=== PATIENT | male | born 1965 | race Caucasian/White ===

== ENCOUNTER 2018-08-12 10:31 | Day surgery (SDC) | payer OTHER ==
--- NOTE | 2018-08-12 07:39 | HP ---
AMENDED REPORT: DATE OF SURGERY: 08/12/2018 HISTORY OF PRESENT ILLNESS: Left lower midline pain and diverticulitis. A couple months ago also episode a year or so ago. Last colonoscopy 20 years ago. No change in stools. No recent colonoscopy. Need for screening. PAST MEDICAL HISTORY: He denies any chronic illnesses. Environmental seasonal allergies. PAST SURGICAL HISTORY: Sinus surgery. Knee surgery. Shoulder surgery. MEDICATIONS: None. ALLERGIES: LEVOFLOXACIN. FAMILY HISTORY: No cancer. His mother had some colon problems unknown exact type but no cancer. SOCIAL HISTORY: No smoking. He denies alcohol abuse. REVIEW OF SYSTEMS: Twelve systems reviewed. No chest pain or palpitations other systems negative or noncontributory as above and per preadmission questionnaire. On 05/21/2018, CT scan showed some mild sigmoid diverticulitis at [facility]. PHYSICAL EXAMINATION: GENERAL: No acute distress. HEENT: Sclerae nonicteric. NECK: No JVD. CHEST: Equal excursion, nonlabored breathing. CVS: Regular rate and rhythm. ABDOMEN: Soft. No peritoneal signs. EXTREMITIES: No significant edema. NEURO: Alert, oriented, moving extremities symmetrically. No gross motor deficits noted. RECTAL: Deferred timed to endoscopy exam. IMPRESSION: Need for follow up screening colonoscopy. I feel he is a candidate. Risks and benefits explained in detail but not limited to bleeding or infection, risk of bowel injury or perforation possibly requiring open procedure, risk of missed or nondiagnosis or incomplete exam possibly requiring barium enema, other studies or procedures, general risk of anesthesia or sedation, risk of bowel prep but not limited to. He was explained all of the above risks but not limited to, will proceed with colonoscopy under MAC anesthesia as an outpatient.
[2018-08-12] MEDS ORDERED: DIPRIVAN 200 MG/20 ML IV ONE (10:32)
[2018-08-12] MEDS ORDERED: Lactated Ringers 1,000 ML IV ONE ×2 (10:53→10:58)
[2018-08-12] MEDS ORDERED: Lactated Ringers 1,000 ML IV SCH (11:00)
[2018-08-12 14:21] VITALS: PULSE 80; O2SAT 98
[2018-08-12 14:50] VITALS: BP 140/56
--- NOTE | 2018-08-13 08:06 | OP ---
SURGERY DATE/TIME: 08/12/2018 1256 PREOPERATIVE DIAGNOSES: 1) Need for screening colonoscopy. 2) History of diverticulosis. POSTOPERATIVE DIAGNOSES: 1) Small raised lesion versus hyperplastic lesion versus early polyp descending colon, sigmoid colon and rectum. 2) Diverticulosis. 3) Small internal and external hemorrhoids. 4) Adequate bowel prep. PROCEDURES: Colonoscopy to cecum with hot biopsy and removal of small raised lesion versus hyperplastic lesion versus early polyp descending colon, sigmoid colon and rectum. SURGEON: Dr. Kayode Mclean. ANESTHESIA: MAC. ESTIMATED BLOOD LOSS: Minimal. INDICATIONS: As noted above. Risks and benefits explained in detail but not limited to and consent obtained. DESCRIPTION OF PROCEDURE AND FINDINGS: The patient is taken to the operating room. MAC anesthesia introduced. After official time out and no disagreement with planned procedure, digital rectal exam did not reveal any rectal masses. He did have some small internal and external hemorrhoids. Video colonoscope inserted and passed up through the tortuous sigmoid, descending, transverse and ascending colon. Cecum, appendiceal orifice and ileocecal valve well visualized. Prep overall was adequate. There was some liquidy semi-solid and some solid stool chunks throughout the colon limiting the exam but it is felt there is no evidence of any obvious large polyps, masses or obstructing lesions. On careful withdrawal of the scope, he did have diverticulosis some scattered throughout the colon but more concentrated in the left colon. The stool is suction irrigated as clear as possible but did slightly limit the exam for small lesions. The scope is slowly and carefully pulled back descending colon. Small raised lesion versus hyperplastic versus early polyp removed with hot biopsy forceps. Good hemostasis noted. This was again repeated in the sigmoid colon and again in the rectum. He had some small internal and external hemorrhoids. There were no signs of any large polyps, masses or obstructing lesions. Overall adequate but limited prep limiting exam for tiny small lesions. There were no immediate complications. Will see the patient back in the office in the next week and a half to two weeks to go over the results and decide on timing of follow up endoscopy. If all the polyps are not adenomatous will plan colonoscopy in five years and if adenomatous type they might need follow up sooner.
== END 2018-08-12 14:35 | disposition home or self-care (01) ==
LOC: SDC 10:31
PROVIDERS: ATTEND Surgery
DX: Z12.11 Encounter for screening for malignant neoplasm of colon (principal); K57.30 Diverticulosis of large intestine without perforation or abscess without bleeding; D12.8 Benign neoplasm of rectum; K64.4 Residual hemorrhoidal skin tags; K64.8 Other hemorrhoids; K63.5 Polyp of colon
CPT/HCPCS: J2704